=== PATIENT | male | born 1975 | race African-American/Black ===

== ENCOUNTER 2016-09-30 10:22 | Emergency (ER) | payer SELFPAY ==
[~2016-09-30] VITALS: Ht 177.8 cm; Wt 90.0 kg
[2016-09-30 10:23] VITALS: BP 162/80
== END 2016-09-30 15:17 | disposition left against medical advice (07) ==
LOC: ER 10:44
DX: M54.5 Low back pain (principal); M54.2 Cervicalgia; F17.200 Nicotine dependence, unspecified, uncomplicated; F12.10 Cannabis abuse, uncomplicated; V49.88XA Car occupant (driver) (passenger) injured in other specified transport accidents, initial encounter; Y93.89 Activity, other specified; Y92.89 Other specified places as the place of occurrence of the external cause; Y99.8 Other external cause status